=== PATIENT | male | born 1975 | race Two or more races ===

== ENCOUNTER 2022-05-27 14:52 | Outpatient (CLI) | payer OTHER ==
[2022-05-27 15:38] LABS: Hemoglobin 14.2 g/dL (13.5-17.5); Mean Corpuscular HGB CONC 34.6 g/dL (32.0-36.0); Mean Corpuscular Hemoglobin 31.1 pg (27.0-33.0); Mean Corpuscular Volume 89.7 fl (81.2-95.1); Mean Platelet Volume 10.7 fl (7.4-10.4); Platelet Count 179 10x3/uL (150-450); RBC Distribution Width 12.3 % (11.5-14.5); Red Blood Cell (RBC) Count 4.57 10x6/uL (4.32-5.72)
[2022-05-27 16:19] LABS: Anion Gap 13 mmol/L (10-20); BUN (Urea Nitrogen) 23 mg/dL (8.9-20.6); Calc. Creatinine Clearance 0 mL/min (70-130); Calcium 9.3 mg/dL (7.8-10.44); Carbon Dioxide 23 mmol/L (22-29); Chloride 108 mmol/L (98-107); Estimated GFR 107; Glucose 109 mg/dL (70-105); Potassium 4.3 mmol/L (3.5-5.1); Sodium 140 mmol/L (136-145)
== END 2022-05-27 14:53 | disposition home or self-care (01) ==
LOC: LABBT 14:52
PROVIDERS: ATTEND Psychiatry & Neurology Child & Adolescent Psychiatry
DX: Z01.812 Encounter for preprocedural laboratory examination (principal); M48.062 Spinal stenosis, lumbar region with neurogenic claudication
CPT/HCPCS: 80048; 85027; 93005; 93010

== ENCOUNTER 2022-06-07 07:31 | Day surgery (SDC) | payer OTHER ==
[2022-06-04 15:53] VITALS: BMI 26.5
[2022-06-07] MEDS ORDERED: fentaNYL PF 100 MCG/2 ML SYRINGE ONE (10:06)
[2022-06-07] MEDS ORDERED: HYDROmorphone 0.5 MG/0.5 ML SYRINGE ONE ×2 (10:06→12:32)
[2022-06-07] MEDS ORDERED: CEFAZOLIN 2 GM VIAL ONE (10:16)
[2022-06-07] MEDS ORDERED: Sodium Chloride 0.9% 100 ML ONE (10:16)
[2022-06-07] MEDS ORDERED: PROPOFOL 200 MG/20 ML VIAL ONE (10:29)
[2022-06-07] MEDS ORDERED: Lidocaine 1% PF 5 ML VIAL ONE (10:29)
[2022-06-07] MEDS ORDERED: PHENYLEPHRINE-NS 100 MCG/ML 10 ML SYRINGE ONE (10:29)
[2022-06-07] MEDS ORDERED: Ondansetron PF 4 MG/2 ML Vial ONE (10:29)
[2022-06-07] MEDS ORDERED: Dexamethasone 20 MG/5 ML VIAL ONE (10:29)
[2022-06-07] MEDS ORDERED: ePHEDrine 50 MG/ML VIAL ONE (10:29)
[2022-06-07] MEDS ORDERED: Rocuronium Bromide 10 MG/ML (10ML VIAL) ONE (10:29)
[2022-06-07] MEDS ORDERED: Glycopyrrolate 0.2 MG/ML 5 ML SYRINGE ONE (10:29)
[2022-06-07] MEDS ORDERED: Vancomycin 1 GM VIAL ONE (10:44)
[2022-06-07] MEDS ORDERED: Fentanyl 100 MCG/2 ML VIAL ONE (11:57)
[2022-06-07] MEDS ORDERED: Tamsulosin HCl 0.4 MG CAP ONE (12:12)
== END 2022-06-07 19:01 | disposition home or self-care (01) ==
LOC: SDC 07:31
PROVIDERS: ATTEND Neurological Surgery
PROC: 01NB0ZZ Release Lumbar Nerve, Open Approach (ICD-10-PCS; principal; 2022-06-07)
DX: M48.062 Spinal stenosis, lumbar region with neurogenic claudication (principal); M54.16 Radiculopathy, lumbar region; Z86.16 Personal history of COVID-19; Z79.899 Other long term (current) drug therapy
CPT/HCPCS: J1100; J1170; J2405; J2704; J3010; J3370; J3490

== ENCOUNTER 2022-11-29 11:39 | Outpatient (CLI) | payer OTHER | END 2022-11-29 11:40 | disposition home or self-care (01) | LOC: SCSMRI 11:39 | PROVIDERS: ATTEND Neurological Surgery | DX: M51.36 Other intervertebral disc degeneration, lumbar region (principal); M47.816 Spondylosis without myelopathy or radiculopathy, lumbar region; Z98.890 Other specified postprocedural states | CPT/HCPCS: 72158 ==